=== PATIENT | male | born 1975 | race Asian ===

== ENCOUNTER 2016-12-15 12:24 | Emergency (ER) | payer OTHER ==
[2016-12-15 12:35] VITALS: BP 137/32; PULSE 68; RESP 16; TEMP 98.1; O2SAT 95
[2016-12-15] MEDS ORDERED: FLUORESCEIN SODIUM 1 MG STRIP OP ONE (12:45)
[2016-12-15] MEDS ORDERED: PROPARACAINE 0.5% 15 ML OPHT DROP ONE (12:46)
--- NOTE | 2016-12-15 12:48 | EDPHY ---
HPI/HX/ROS/PE/MDM Narrative: CHIEF COMPLAINT: Right eye injury HPI: This patient is a healthy 41 y/o male arriving with his friend complaining of right eye pain following an injury about an hour ago. He states he walking into a metal music stand. He reports mild pain and denies any changes in vision or other injuries. He denies any ophthalmologic history or other medical conditions. REVIEW OF SYSTEMS: Aside from elements discussed in the HPI, a comprehensive 10- point review of systems was reviewed and is negative. PMH: Denies. 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 Friend at bedside. PHYSICAL EXAM: General:Patient is alert, in no acute distress. Head: Atraumatic Visual Acuity: noted from Nurse's notes. Focused examination of the right eye. Eyelid: No edema, erythema or swelling. Pupils: Round and reactive to light. EOMI Conjunctivae: No injection, no discharge. Cornea: Exam with fluorescein shows two corneal abrasions in 1 and 2 o'clock positions. No streaming. Anterior chamber: Normal, no hyphema or hypopyon Skin: No proptosis, no periorbital erythema or swelling, no vesicles. Neuro: Oriented x3. Moving all four extremities equally. ED Course: This is a healthy 41 y/o male who presents for evaluation of right eye pain following walking into a metal pole this afternoon. On slit lamp exam, he has two corneal abrasions in the one and two o'clock positions. He will be discharged home with Gentamicin drops and Vicodin for pain management. He has been directed to follow up with ophthalmology if needed for persistent pain after 48 hours. Plan and return precautions discussed. The patient is comfortable with this plan. MDM: No sign of penetrating globe injury, hyphema, facial bone fracture, foreign body or pupil deformity. General Time Seen by Provider: 12/15/16 12:43 Initial Vital Signs: Initial Vital Signs Temperature (C) 36.7 C 12/15/16 12:32 Heart Rate 68 12/15/16 12:32 Respiratory Rate 16 12/15/16 12:32 Blood Pressure 137/32 H 12/15/16 12:32 O2 Sat (%) 95 12/15/16 12:32 O2 Delivery Mode Room Air Allergies/Adverse Reactions: No Known Allergies Allergy (Verified 12/15/16 12:32) Home Medications: Medication Instructions Recorded NO HOME MEDICATIONS 08/16/10 Gentamicin 0.3% [Gentak 0.3% Opht 1 drop OP Q4 5 Days 12/15/16 Drops (RX)] Hydrocodone/APAP 5/325 [Outlook 1 - 2 tab PO Q4H PRN #20 tab 12/15/16 5/325 (RX)] Departure - Departure Disposition: Home, Routine, Self-Care Clinical Impression: Corneal abrasion Qualifiers: Encounter type: initial encounter Laterality: right Qualified Code(s): S05.01XA - Injury of conjunctiva and corneal abrasion without foreign body, right eye, initial encounter Condition: Good Instructions: Corneal Abrasion (ED) Additional Instructions: 1. Use Gentamicin eye drops as directed. 2. Take Vicodin as prescribed when needed for pain 3. You can try patching your eye if it is more comfortable 4. Follow up with the director of teacher education reconnaissance crewmember, Dr. Dave, for symptoms unresolved in the next 2-3 days. 5. Return to the ED for any vision changes, significantly worsening pain, dramatic increase in swelling, or other worsening of condition. Referrals: DEBRA MAGANA [Primary Care Provider] - As per Instructions Porfirio Dave MD [Medical Doctor] - As per Instructions Prescriptions: Gentamicin 0.3% [Gentak 0.3% Opht Drops (RX)] 1 drop OP Q4 5 Days Hydrocodone/APAP 5/325 [Outlook 5/325 (RX)] 1 - 2 tab PO Q4H PRN #20 tab PRN Reason: Pain, Moderate Report Scribed for: Ruben Hyman Report Scribed by: Ora Burris Date of Report: 12/15/16 Time of Report: 12:48 Physician Review and Approval Statement: Portions of this note were transcribed by an ED scribe. I personally performed the history, physical exam, and medical decision making; and confirm the accuracy of the information in the transcribed note.
[2016-12-15] MEDS ORDERED: PROPARACAINE 0.5% 15 ML OPHT DROP RTEYE ONE (13:15)
== END 2016-12-15 13:17 | disposition home or self-care (01) ==
DX: S05.01XA Injury of conjunctiva and corneal abrasion without foreign body, right eye, initial encounter (principal); W22.8XXA Striking against or struck by other objects, initial encounter